=== PATIENT | male | born 1935 | race Caucasian/White ===

== ENCOUNTER → 2016-11-28 | Outpatient (CLI) | payer MEDICARE ==
--- NOTE | 2016-11-28 11:15 | RADIOLOGY REPORT (SQ) ---
EXAM DESCRIPTION: U/S ABDOMEN LIMITED W/O DOP COMPLETED DATE/TIME: 11/28/2016 10:07 am REASON FOR STUDY: CALCULUS OF GALLBLADDER W/O CHOLECYSTITIS W/O OBSTRUCTION (K80.20) K80.20 CALCULU S OF GALLBLADDER W/O CHOLECYSTITIS W/O OBSTRUC COMPARISON: None. TECHNIQUE: Dynamic and static grayscale images acquired of the abdomen and recorded on PACS. Additio nal selected color Doppler and spectral images recorded. LIMITATIONS: None. FINDINGS: PANCREAS: No masses. Evaluation of the tail of the pancreas was limited because of bowel gas. LIVER: 16.3 cm. Diffusely echogenic. There is a 17 mm cyst. LIVER VASCULATURE: Normal directional flow of the main portal vein and hepatic veins. GALLBLADDER: No pericholecystic fluid. No wall thickening. A couple small gallstones are present. ULTRASOUND-DETECTED JIMENEZ'S SIGN: Negative. INTRAHEPATIC DUCTS AND COMMON DUCT: Common bile duct is normal at 4 mm. There is no intrahepatic michael willaim dilatation. INFERIOR VENA CAVA: Normal flow. AORTA: No aneurysm. RIGHT KIDNEY: Normal size 10.9 cm. Normal echogenicity. No solid or suspicious masses. There is a 5 cm cyst arising from the upper pole. No hydronephrosis. No calcifications. PERITONEAL AND RIGHT PLEURAL SPACE: No ascites or effusions. OTHER: None IMPRESSION: 1. Fatty infiltration of the liver. Small hepatic cyst. 2. Cholelithiasis with no evidence of cholecystitis. 3. Right renal cyst. TECHNICAL DOCUMENTATION: JOB ID: [id number] [employer]- All Rights Reserved
== END ==
LOC: RAD 09:04
PROVIDERS: ATTEND Internal Medicine
DX: K80.20 Calculus of gallbladder without cholecystitis without obstruction (principal)
CPT/HCPCS: 76705

== ENCOUNTER → 2016-12-31 | Day surgery (SDC) | payer MEDICARE ==
[~2016-12-31] MED LIST: BUPIVACAINE HCL 0.75% INJ/PF (7.5 MG/1 ML) 10 ML SDV OD PRN; CHONDR SU A NA/HYALUR INTRAOC KIT (SURGICARE) ONE; FENTANYL CITRATE INJ/PF 100 MCG/2 ML AMPUL ONE; KETOROLAC TROMETHAMINE 0.45% 4 DROP/0.4 ML DROPERETTE OD PRN; LIDOCAINE 4% INJ/PF (40 MG/ML) 5 ML AMPUL OD PRN; MIDAZOLAM 2 MG/2 ML INJ ONE; ONDANSETRON HCL INJ/PF 4 MG/2 ML SDV ONE; PHENYLEPHRINE/KETOROLAC 1%-0.3% 4 ML VIAL ONE
[2016-12-31] MEDS: TROPICAMIDE 1% OPH SOLN 3 ML OD PRN ×3 (06:59→07:19)
[2016-12-31] MEDS: CYCLOPENTOLATE 0.2%/PHENYLEPHRINE 1% OPH SOLN 2 ML OD PRN ×3 (06:59→07:19)
[2016-12-31] MEDS: BESIFLOXACIN HCL 0.6% OPH SUSP 5 ML BOTTLE OD PRN ×3 (06:59→07:55)
[2016-12-31] MEDS: TETRACAINE HCL 0.5% OPH SOLN 0.6 ML DROPERETTE OD PRN ×2 (07:00→07:19)
--- NOTE | 2016-12-31 09:06 | [facility] OPERATIVE REPORT E ---
[facility] Operative Report NAME: SADE LAURA AGE: 81Y DATE OF SURGERY: 12/31/2016 ROOM: PREOPERATIVE DIAGNOSIS: CATARACT, RIGHT EYE. POSTOPERATIVE DIAGNOSIS: CATARACT, RIGHT EYE. PROCEDURE PERFORMED: Phacoemulsification with posterior chamber intraocular lens, right eye. SURGEON: MILENA WILLIAMSON M.D. ANESTHESIA: Topical with MAC. INDICATION FOR SURGERY: Difficulty reading road signs and scroll on the bottom of the TV. Best corrected visual acuity 20/50. DESCRIPTION OF PROCEDURE: The patient was brought to the operating room and placed on the operative table. Following tetracaine drops, topical anesthesia was administered. This consisted of instrument wipe pledgets soaked in a solution of 4% Xylocaine mixed with 0.75% Marcaine in a 1:2 ratio. A 2 x 1 cm pledget was placed in the superior fornix. A 1 x 1 cm pledget was placed in the inferior fornix. The eye was patched shut for 5 minutes. The patch was removed. The eye was sterilely prepped and draped in the usual manner. Lid speculum was placed in the eye. The pledgets were removed, 4-0 black silk sutures were placed around the superior and the inferior rectus muscles to be used as traction. A conjunctival peritomy was made at the 10 o'clock position. Hemostasis was obtained with bipolar cautery. A posterior limbal groove was created using a crescent knife and dissected anteriorly towards the cornea. A sharp point blade was used to create a paracentesis site at the 2 o'clock position. A 2.4 mm keratome was used to enter the anterior chamber through the groove. Viscoelastic was injected into the anterior chamber. An anterior capsulotomy was performed using Utrata forceps in a capsulorrhexis fashion. Hydrodissection and hydrodelineation were performed. Phacoemulsification was performed in knsabv-sbk-irslbrs technique. A total of 1 minute 2 seconds of total phaco time was used. Following this, the I/A unit was used to remove residual cortex. Viscoelastic was injected into the capsular bag. Intraocular lens model SN60WF, 15.0 diopters, serial number [id number], was placed in the capsular bag. The I/A unit was used to removed residual viscoelastic. The wound was seen to be watertight under high and low pressure, and no sutures were placed. The intraocular lens was well centered. The pressure was adjusted in the eye to normal pressure. The 4-0 black silk sutures and lid speculum were removed. The eye was shielded after Besivance drops were placed. The patient tolerated the procedure well and was sent to the recovery room in good condition. DICTATING PHYSICIAN: MILENA WILLIAMSON M.D. [id number] PHY#: [id number] ID: [id number] JOB#: [id number] ACCT: [id number] cc:MILENA WILLIAMSON M.D. >
--- NOTE | 2016-12-31 09:11 | [facility] DISCHARGE SUMMARY E ---
[facility] Discharge Summary NAME: SADE LAURA AGE: 81Y ADMITTED: 12/31/2016 DISCHARGED: 12/31/2016 PREOPERATIVE DIAGNOSIS: CATARACT, RIGHT EYE. POSTOPERATIVE DIAGNOSIS: CATARACT, RIGHT EYE. HISTORY OF PRESENT ILLNESS AND HOSPITAL COURSE: The patient is an 81-year-old gentleman who underwent uneventful cataract extraction with intraocular lens implant, right eye, on 12/31/2016. He will be discharged to home. He was instructed to resume preoperative medications, take Tylenol as needed for discomfort, keep his eye shielded, to use Besivance, Durezol, and Ilevro 3 p.m. and 8 p.m., and to follow up in my office in 1 day. DICTATING PHYSICIAN: MILENA WILLIAMSON M.D. [id number] PHY#: [id number] ID: [id number] JOB#: [id number] ACCT: [id number] cc:MILENA WILLIAMSON M.D. >
== END ==
LOC: SC 06:41
PROVIDERS: ATTEND Ophthalmology
PROC: 08RJ3JZ Replacement of Right Lens with Synthetic Substitute, Percutaneous Approach (ICD-10-PCS; principal; 2016-12-31 07:30)
DX: H25.813 Combined forms of age-related cataract, bilateral (principal); H43.812 Vitreous degeneration, left eye; H17.89 Other corneal scars and opacities; H35.042 Retinal micro-aneurysms, unspecified, left eye; I10 Essential (primary) hypertension; E78.00 Pure hypercholesterolemia, unspecified; I48.91 Unspecified atrial fibrillation; Z79.899 Other long term (current) drug therapy; Z79.82 Long term (current) use of aspirin; Z79.01 Long term (current) use of anticoagulants
CPT/HCPCS: 66984; V2632; J2250; J3490 ×3; A9270; J3010; J2405; C9447; 142

== ENCOUNTER 2017-01-21 07:21 | Day surgery (SDC) | payer MEDICARE ==
[~2017-01-21 07:21] MED LIST changes: -BUPIVACAINE HCL 0.75% INJ/PF (7.5 MG/1 ML) 10 ML SDV OD PRN; +BUPIVACAINE HCL 0.75% INJ/PF (7.5 MG/1 ML) 10 ML SDV OS PRN; -CHONDR SU A NA/HYALUR INTRAOC KIT (SURGICARE) ONE; -FENTANYL CITRATE INJ/PF 100 MCG/2 ML AMPUL ONE; -KETOROLAC TROMETHAMINE 0.45% 4 DROP/0.4 ML DROPERETTE OD PRN; +KETOROLAC TROMETHAMINE 0.45% 4 DROP/0.4 ML DROPERETTE OS PRN; -LIDOCAINE 4% INJ/PF (40 MG/ML) 5 ML AMPUL OD PRN; +LIDOCAINE 4% INJ/PF (40 MG/ML) 5 ML AMPUL OS PRN; -MIDAZOLAM 2 MG/2 ML INJ ONE; -ONDANSETRON HCL INJ/PF 4 MG/2 ML SDV ONE; -PHENYLEPHRINE/KETOROLAC 1%-0.3% 4 ML VIAL ONE
[2017-01-21] MEDS ORDERED: PHENYLEPHRINE/KETOROLAC 1%-0.3% 4 ML VIAL ONE (07:39)
[2017-01-21] MEDS ORDERED: CHONDR SU A NA/HYALUR INTRAOC KIT (SURGICARE) ONE (07:40)
[2017-01-21] MEDS: CYCLOPENTOLATE 0.2%/PHENYLEPHRINE 1% OPH SOLN 2 ML OS PRN ×3 (07:59→08:21)
[2017-01-21] MEDS: TROPICAMIDE 1% OPH SOLN 3 ML OS PRN ×3 (07:59→08:21)
[2017-01-21] MEDS: LIDOCAINE 3.5% OPH GEL/PF 1 ML/TUBE OS PRN ×2 (07:59→08:52)
[2017-01-21] MEDS: BESIFLOXACIN HCL 0.6% OPH SUSP 5 ML BOTTLE OS PRN ×3 (07:59→09:23)
[2017-01-21] MEDS ORDERED: FENTANYL CITRATE INJ/PF 100 MCG/2 ML AMPUL ONE (08:46)
[2017-01-21] MEDS ORDERED: MIDAZOLAM 2 MG/2 ML INJ ONE (08:46)
--- NOTE | 2017-01-21 09:57 | [facility] OPERATIVE REPORT E ---
[facility] NAME: SADE LAURA AGE: 81Y DATE OF SURGERY: 01/21/2017 ROOM: PREOPERATIVE DIAGNOSIS: CATARACT, LEFT EYE. POSTOPERATIVE DIAGNOSIS: CATARACT, LEFT EYE. PROCEDURE PERFORMED: Phacoemulsification with posterior chamber intraocular lens, left eye. SURGEON: MILENA WILLIAMSON M.D. ANESTHESIA: Topical with MAC. INDICATIONS FOR SURGERY: Difficulty reading words on TV, and driving. Best corrected visual acuity: 20/50. DESCRIPTION OF PROCEDURE: The patient was brought to the operating room and placed on the operative table. Following tetracaine drops, topical anesthesia was administered. This consisted of instrument wipe pledgets soaked in a solution of 4% Xylocaine mixed with 0.75% Marcaine in a 1:2 ratio. A 2 x 1 cm pledget was placed in the superior fornix. A 1 x 1 cm pledget was placed in the inferior fornix. The eye was patched shut for 5 minutes. The patch was removed. The eye was sterilely prepped and draped in the usual manner. Lid speculum was placed in the eye. The pledgets were removed, 4-0 black silk sutures were placed around the superior and the inferior rectus muscles to be used as traction. A conjunctival peritomy was made at the 10 o'clock position. Hemostasis was obtained with bipolar cautery. A posterior limbal groove was created using a crescent knife and dissected anteriorly towards the cornea. A sharp point blade was used to create a paracentesis site at the 2 o'clock position. A 2.4 mm keratome was used to enter the anterior chamber through the groove. Viscoelastic was injected into the anterior chamber. An anterior capsulotomy was performed using Utrata forceps in a capsulorrhexis fashion. Hydrodissection and hydrodelineation were performed. Phacoemulsification was performed in sedvqr-orr-wgwtngy technique. A total of 56 seconds total phaco time was used. Following this, the I/A unit was used to remove residual cortex. Viscoelastic was injected into the capsular bag. Intraocular lens Model SN60WF, 16.5 diopter, serial number [id number] was placed in the capsular bag. The I/A unit was used to removed residual viscoelastic. The wound was seen to be watertight under high and low pressure, and no sutures were placed. The intraocular lens was well centered. The pressure was adjusted in the eye to normal pressure. The 4-0 black silk sutures and lid speculum were removed. The eye was shielded after Besivance drops were placed. The patient tolerated the procedure well and was sent to the recovery room in good condition. DICTATING PHYSICIAN: MILENA WILLIAMSON M.D. [id number] PHY#: [id number] ID: [id number] JOB#: [id number] ACCT: [id number] cc:MILENA WILLIAMSON M.D. >
--- NOTE | 2017-01-21 09:57 | [facility] DISCHARGE SUMMARY E ---
[facility] Discharge Summary NAME: SADE LAURA AGE: 81Y ADMITTED: 01/21/2017 DISCHARGED: 01/21/2017 PREOPERATIVE DIAGNOSIS: CATARACT, LEFT EYE. POSTOPERATIVE DIAGNOSIS: CATARACT, LEFT EYE. HOSPITAL COURSE: Patient is a 81-year-old gentleman who underwent uneventful cataract extraction with intraocular lens implant, left eye on 01/21/2017. DISPOSITION: He will be discharged to home. He was instructed to resume preoperative medications; take Tylenol as needed for discomfort; to keep his eye shielded; to use Besivance, Durezol, and Ilevro at 3:00 p.m. and 8:00 p.m.; and to follow up in my office in 1 day. DICTATING PHYSICIAN: MILENA WILLIAMSON M.D. [id number] PHY#: [id number] ID: [id number] JOB#: [id number] ACCT: [id number] cc:MILENA WILLIAMSON M.D. >
== END 2017-01-21 09:57 | disposition home or self-care (01) ==
LOC: SC 07:21
PROVIDERS: ATTEND Ophthalmology
PROC: 08RJ3JZ Replacement of Right Lens with Synthetic Substitute, Percutaneous Approach (ICD-10-PCS; principal; 2017-01-21 08:30)
DX: H25.812 Combined forms of age-related cataract, left eye (principal); Z96.1 Presence of intraocular lens; I10 Essential (primary) hypertension; I48.91 Unspecified atrial fibrillation; Z96.641 Presence of right artificial hip joint
CPT/HCPCS: 66984; V2632; J2250; J3490 ×3; A9270 ×2; J3010; C9447; 142